=== PATIENT | male | born 1980 | race Caucasian/White ===

== ENCOUNTER 2018-06-16 19:17 | Emergency (ER) | payer SELFPAY ==
[2018-06-16 19:30] VITALS: BP 122/69; PULSE 67; TEMP 98.2; BMI 26.7
--- NOTE | 2018-06-16 19:33 | PDOC ---
Rapid Medical Evaluation Chief Complaint: Pain Time Seen by Provider: 06/16/18 19:31 Medical Evaluation: Allergies Allergy/AdvReac Type Severity Reaction Status Date / Time No Known Allergies Allergy Verified 06/16/18 19:31 Vital Signs Temp Pulse Resp BP Pulse Ox 98.2 F 67 18 122/69 100 06/16/18 19:26 06/16/18 19:26 06/16/18 19:26 06/16/18 19:26 06/16/18 19:26 06/16/18 19:35 I have performed a brief in-person evaluation of this patient. The patient presents with a chief complaint of: burning in epigastric area going upto mid-chest and nausea which worsens with food. Denies vomiting, CP Pertinent physical exam findings: A&O x 3. abd Soft, NT/ND I have ordered the following:None The patient will proceed to the ED for further evaluation. Discharge Disposition - Diagnosis GERD (gastroesophageal reflux disease) Qualifiers: Esophagitis presence: esophagitis presence not specified Qualified Code(s): K21.9 - Gastro-esophageal reflux disease without esophagitis - Referrals - Patient Instructions - Post Discharge Activity
--- NOTE | 2018-06-16 20:38 | PDOC ---
History of Present Illness - General Chief Complaint: Pain Stated Complaint: SICK Time Seen by Provider: 06/16/18 19:31 History Source: Patient Exam Limitations: No Limitations - History of Present Illness Initial Comments: 06/16/18 20:38 The patient presents with a chief complaint of: burning in epigastric area going upto mid-chest and nausea which worsens with food. Denies vomiting, CP Pertinent physical exam findings: A&O x 3. abd Soft, NT/ND 37 year old with a history of prediabetes who presents with epigastric burning radiating into the chest. He notes that he has had this pain for years but ran out of his medications last week. He was seen at a different hospital and he reports that they had given him antibiotics to treat his epigastric pain. denies radiation of the pain. PCP: Naheed Mcpherson 06/16/18 20:46 Past History - Past Medical History Allergies/Adverse Reactions: Allergies Allergy/AdvReac Type Severity Reaction Status Date / Time No Known Allergies Allergy Verified 06/16/18 19:31 Home Medications: Ambulatory Orders Pantoprazole Sodium [Protonix -] 40 mg PO DAILY #30 tablet.ec 06/16/18 COPD: No - Suicide/Smoking/Psychosocial Hx Smoking History: Never smoked Hx Alcohol Use: Yes *Physical Exam - Vital Signs Last Vital Signs Temp Pulse Resp BP Pulse Ox 98.2 F 67 18 122/69 100 06/16/18 19:26 06/16/18 19:26 06/16/18 19:26 06/16/18 19:26 06/16/18 19:26 ED Treatment Course - LABORATORY CBC & Chemistry Diagram: 06/16/18 21:34 06/16/18 21:28 Medical Decision Making - Medical Decision Making 06/16/18 23:37 labwork: unremarkable 06/17/18 02:03 Patient reassessed. Stable. Feels improved. *DC/Admit/Observation/Transfer Diagnosis at time of Disposition: GERD (gastroesophageal reflux disease) Qualifiers: Esophagitis presence: esophagitis presence not specified Qualified Code(s): K21.9 - Gastro-esophageal reflux disease without esophagitis - Discharge Dispostion Disposition: HOME Condition at time of disposition: Stable Decision to Admit order: No - Prescriptions Prescriptions: Pantoprazole Sodium [Protonix -] 40 mg PO DAILY #30 tablet.ec - Referrals - Patient Instructions Printed Discharge Instructions: DI for Gastroesophageal Reflux Disease (GERD) Additional Instructions: You were seen in the ED for complaints of upper abdominal burning. In the ED you were evaluated with labwork and imaging. Your results were unremarkable and you showed improvement with symptomatic treatment. There does not appear to be an acute need for immediate hospitalization. You are advised to follow up with your Primary Care Physician within 1 week. You were given a referral to Gastroenterology and advised to follow up within 1 week. You were given a prescription for antacid medications and are advised to take these medications as directed. Return to the ED immediately if you experience new or worsening symptoms including chest pain, nausea, sweating, shortness of breath or loss of consciousness. Usted fue visto en el servicio de urgencias por quejas de ardor abdominal superior. En el servicio de urgencias se le evalu con trabajo de laboratorio e imgenes. Vida resultados no fueron notables y mostr aaron mejora con el tratamiento sintomtico. No parece kylah aaron necesidad aguda de hospitalizacin inmediata. Se recomienda realizar un seguimiento con [facility] mdico de atencin primaria dentro de 1 semana. Se le flakita aaron referencia a Gastroenterologa y se le recomend hacer un seguimiento dentro de 1 semana. Recibi aaron receta para medicamentos anticidos y se le recomienda que tome estos medicamentos segn las indicaciones. Regrese a la ana maria de urgencias inmediatamente si experimenta sntomas nuevos o que empeoran, reinaldo dolor en el pecho, nuseas, sudoracin, falta de aliento o prdida de conciencia. - Post Discharge Activity
[2018-06-16] MEDS ORDERED: SODIUM CHLORIDE 1,000 ML IV STA (20:45)
[2018-06-16] MEDS ORDERED: FAMOTIDINE 20 MG/50 ML IVPB 20 MG/50 ML MG IVPB ONE ×2 (20:45→21:23)
[2018-06-16] MEDS ORDERED: MAG HYDROX/AL HYDROX/SIMETH 30 ML UNIT-DOSE CUP PO ONE (20:46)
[2018-06-16] MEDS ORDERED: MAG HYDROX/AL HYDROX/SIMETH 30 ML UNIT-DOSE CUP ONE (21:23)
[2018-06-16 21:37] LABS: BASO % 0.5 % (0-2.0); EOS % 2.2 % (0-4.5); HEMATOCRIT 44.3 % (35.4-49); HEMOGLOBIN 14.7 GM/dL (11.7-16.9); LYMPH % 36.9 % (8-40); MCH 29.3 pg (25.7-33.7); MCHC 33.2 g/dl (32.0-35.9); MEAN CELL VOLUME 88.3 fl (80-96); MEAN PLT VOLUME 8.4 fl (7.5-11.1); NEUT % 54.4 % (42.8-82.8); PLATELET COUNT 250 K/MM3 (134-434); RBC 5.02 M/mm3 (4.00-5.60); RDW 12.6 % (11.9-15.9); WHITE BLOOD COUNT 7.3 K/mm3 (4.0-10.0)
[2018-06-16 22:22] LABS: ALBUMIN 4.2 g/dl (3.4-5.0); ALK PHOS 72 U/L (45-117); ANION GAP 9 MMOL/L (8-16); BILIRUBIN,TOTAL 0.2 mg/dL (0.2-1); BLOOD UREA NITROGEN 20 mg/dL (7-18); CALCIUM 8.7 mg/dL (8.5-10.1); CHLORIDE 109 mmol/L (98-107); CO2 23 mmol/L (21-32); CREATININE 0.8 mg/dL (0.55-1.3); GLUCOSE,RANDOM 91 mg/dL (74-106); LIPASE 270 U/L (73-393); POTASSIUM 4.3 mmol/L (3.5-5.1); SGOT/AST 26 U/L (15-37); SGPT/ALT 52 U/L (13-61); SODIUM 141 mmol/L (136-145); TOT PROT 7.5 g/dl (6.4-8.2)
--- NOTE | 2018-06-16 22:23 | PDOC ---
Attending Attestation - HPI HPI: 06/16/18 22:24 The patient is a 37 year old male with past medical history of GERD, and recent diagnosis of H.pylori (05/29/18, diagnosed via stool sample) who presents to the ED with complaints of epigastric pain radiating upward into the chest and throat. He describes the pain as burning and is worse with eating. Reports associated nausea but denies any vomiting or hematemesis. Denies fevers or chills. Denies cough, SOB, palpitations, diaphoresis or lightheadedness. Is currently taking clarithromycin (05/29/18, completed course 2 days ago). Also ran out of his GERD medications, unknown name. - Physicial Exam PE: 06/16/18 22:24 NAD, well appearing, MMM, nl conjunctiva, anicteric; neck supple. lungs clear, RRR, abdomen soft non tender. Neg [place] sign. No mcburneys point tenderness. N[place] x4, no focal neuro deficits. No peripheral edema. normal color for ethnicity, WWP. - Medical Decision Making 06/16/18 22:26 Documentation prepared by Cierra Nichols, acting as hospital medical assistant for Thu Fitch MD. <Cierra Nichols - Last Filed: 06/16/18 22:24> - Resident Resident Name: Vee Billingsley - ED Attending Attestation I have performed the following: I have examined & evaluated the patient, The case was reviewed & discussed with the resident, I agree w/resident's findings & plan - Medical Decision Making 06/16/18 22:19 I, Thu Fitch MD, attest that this document has been prepared under my direction and personally reviewed by me in its entirety. I further attest, that it accurately reflects all work, treatment, procedures and medical decision -making performed by me. 37 YOM with H. pylori completed tx with triple therapy, dx'd by stool sample and GERD presenting with epigastric discomfort and chest burning, worse with eating. DDx abdominal pain/chest pain: biliary colic, GERD, PUD, esophageal spasm, pancreatitis, hepatitis, ACS. clinically doubt ACS or cardiac etiology. more likely GERD vs. gastritis vs. esophageal spasm. Vital signs reviewed, wnl. no fever. Prior notes reviewed, including admissions, discharges and consultations. laboratory results and imaging reviewed, basic labs and lytes wnl, notable for normal LFTs/lipase. CXR_normal cardiac silhouette. no infiltrate or edema or effusion. EKG normal sinus rhythm, no interval abnormalities, narrow QRS, ST and T wave segments and morphology normal. Nonspecific T wave abnormalities in III only, no contiguous lead changes ED course: no acute events, remained stable and well appearing. Clinically improved after interventions, including pepcid, IVF and maalox, with symptom relief. recently completed abx/PPI treatment for H pylori by stool sampling. rx protonix daily, f/u GI, referral given. Dispo: Pt to be discharged in stable condition. Patient and family made aware of impression and plan, return precautions discussed (including but not limited to worsening pain or symptoms), fevers, or signs of infection, chest pain, respiratory distress, inability to tolerate oral intake, dehydration, syncope, or neurologic changes). Follow up with PMD and/or specialist as recommended, follow up information provided, take medications as instructed for duration of time. continue with supportive care, avoid triggers and precipitants. All questions answered to patient's satisfaction and expressed understanding and comfort with this. 06/17/18 00:36 <Thu Fitch - Last Filed: 06/17/18 00:39> Heart Score/ECG Review - ECG Impressions Normal ECG: Yes Comment:: 06/16/18 22:24 EKG normal sinus rhythm, no interval abnormalities, narrow QRS, ST and T wave segments and morphology normal. Nonspecific T wave abnormalities in III only, no contiguous lead changes <Thu Fitch - Last Filed: 06/17/18 00:39>
--- NOTE | 2018-06-17 16:15 | EKG ---
Test Reason : Blood Pressure : / mmHG Vent. Rate : 053 BPM Atrial Rate : 053 BPM P-R Int : 140 ms QRS Dur : 092 ms QT Int : 406 ms P-R-T Axes : 042 042 024 degrees QTc Int : 380 ms SINUS BRADYCARDIA OTHERWISE NORMAL ECG NO PREVIOUS ECGS AVAILABLE Confirmed by MD EDUARDO, NEREIDA ([id number]) on 06/17/2018 4:15:07 PM Referred By: Confirmed By:NEREIDA CLARK MD
== END 2018-06-17 02:03 | disposition home or self-care (01) ==
LOC: JER 19:17
PROC: 3E033GC Introduction of Other Therapeutic Substance into Peripheral Vein, Percutaneous Approach (ICD-10-PCS; principal; 2018-06-16)
DX: K21.9 Gastro-esophageal reflux disease without esophagitis (principal); Z86.19 Personal history of other infectious and parasitic diseases; B96.81 Helicobacter pylori [H. pylori] as the cause of diseases classified elsewhere
CPT/HCPCS: 36415; 71046-TC-FY; 80053; 83690; 85025; 93005; 93010; 99284-25; J7030

== ENCOUNTER 2021-01-06 19:33 | Emergency (ER) | payer OTHER ==
[2021-01-06 19:37] VITALS: BP 126/77; PULSE 68; TEMP 98; BMI 25.0
[2021-01-06] MEDS ORDERED: SILVER SULFADIAZINE 1% TOP CREAM 50 GM JAR TP ONE ×2 (20:24→20:30)
[2021-01-06] MEDS ORDERED: DIPHTH,PERTUSS(ACELL),TET 0.5 ML DISP.SYRIN IM ONE ×2 (20:24→20:30)
[2021-01-06] MEDS ORDERED: IBUPROFEN 600 MG TABLET (FP) PO ONE ×2 (20:24→20:29)
== END 2021-01-06 22:04 | disposition home or self-care (01) ==
LOC: JERFT 19:33
PROC: 3E0234Z Introduction of Serum, Toxoid and Vaccine into Muscle, Percutaneous Approach (ICD-10-PCS; principal; 2021-01-06)
DX: T20.20XA Burn of second degree of head, face, and neck, unspecified site, initial encounter (principal); T22.211A Burn of second degree of right forearm, initial encounter
CPT/HCPCS: 90715; 99284-25